=== PATIENT | female | born 1965 | race Caucasian/White ===

== ENCOUNTER 2019-04-10 13:35 | Day surgery (SDC) | payer OTHER ==
[~2019-04-10 13:35] MED LIST: CEFAZOLIN 2 GM/50 ML (PMX) 50 ML IVPB; LACTATED RINGER'S 1,000 ML IV
[2019-04-10] MEDS ORDERED: MIDAZOLAM 1 MG/ML 2 ML INJ (16:34)
[2019-04-10] MEDS ORDERED: ONDANSETRON 4 MG INJ (17:50)
[2019-04-10] MEDS ORDERED: LIDOCAINE 2% (SDV) 5 ML INJ (17:50)
[2019-04-10] MEDS ORDERED: PROPOFOL 20 ML (17:50)
[2019-04-10] MEDS ORDERED: CEFAZOLIN 1 GM INJ (17:51)
[2019-04-10] MEDS ORDERED: ROPIVACAINE 0.5 % 30 ML VIAL (17:52)
[2019-04-10] MEDS ORDERED: MEPERIDINE 100 MG INJ (18:10)
[2019-04-10] MEDS ORDERED: DIPHENHYDRAMINE 50 MG INJ IV (18:30)
[2019-04-10] MEDS ORDERED: HYDROmorphONE 1 MG/5 ML IV SYRINGE IV ×2 (18:30)
[2019-04-10] MEDS ORDERED: FENTAnyl 50 MCG/ML VIAL IV (18:30)
[2019-04-10] MEDS ORDERED: ONDANSETRON 4 MG INJ IV (18:30)
[2019-04-10] MEDS ORDERED: METOCLOPRAMIDE 10 MG INJ IV (18:30)
[2019-04-10] MEDS ORDERED: MEPERIDINE 25 MG INJ IV (18:30)
== END 2019-04-10 19:34 | disposition home or self-care (01) ==
LOC: SDS 13:35
DX: S52.571A Other intraarticular fracture of lower end of right radius, initial encounter for closed fracture (principal); S52.601A Unspecified fracture of lower end of right ulna, initial encounter for closed fracture; X58.XXXA Exposure to other specified factors, initial encounter; G56.01 Carpal tunnel syndrome, right upper limb
CPT/HCPCS: 25280; 73110-RT; 84703